=== PATIENT | female | born 1990 | race Caucasian/White ===

== ENCOUNTER → 2024-03-31 14:42 | Outpatient (REF) | payer BC, SELFPAY | LOC: RAD 14:42 | PROVIDERS: ATTENDING PHYSICIAN Nurse Practitioner Family; FAMILY PHYSICIAN Family Medicine | DX: O00.90 Unspecified ectopic pregnancy without intrauterine pregnancy (principal) | CPT/HCPCS: 76801 ==

== ENCOUNTER 2024-07-10 16:54 | Emergency (ER) | payer BC, SELFPAY ==
[2024-07-10 16:57] VITALS: BP 121/88
--- NOTE | 2024-07-10 17:01 | ED.GENMED ---
ED Provider Triage
<Leonor Sanches PA-C - Last Filed: 07/10/24 17:03>
-
Patient seen by provider in Triage?: Seen in Triage
Attestation: A medical screening examination has been initiated by a qualified medical provider. Based on the assessment performed at this time, it has been determined that an emergent medical condition may exist and the patient has been informed
that further medical evaluation and possible additional diagnostic testing may be needed.
HPI: 33yoF currently 11 weeks presenting for vomiting and diarrhea that started yesterday. Vomiting about 20x since then. Worried about dehydration. and children also have similar symptoms and were told it was likely norovirus.
Denies abd/pelvic pain and vaginal bleeding.
GENERAL: Alert , in no apparent distress
EYE: No visual abnormalities.
NECK: Trachea midline
ENT: No visible abnormalities.
LUNGS: No acute respiratory distress
NEUROLOGICAL: Alert and oriented
SKIN: Skin intact. No visible changes.
MUSCULOSKELETAL: Moving extremities normally
PSYCH: Normal and appropriate interaction.
This is a medical evaluation conducted in person to initiate diagnostic evaluation and provide initial therapeutics. Please see further documentation by the treating clinician.
CBC, CMP, magnesium, IV Zofran and fluid bolus ordered.
History of Present Illness
<Leonor Sanches PA-C - Last Filed: 07/10/24 17:03>
General
Chief Complaint: Dehydration Symptoms
Time Seen by Provider: 07/10/24 17:20
<Andria Garcia PA-C - Last Filed: 07/10/24 23:38>
General
Source: patient and spouse
Exam Limitations: none
Nursing documentation reviewed up to this point in time: agreed with
History of Present Illness
History of Present Illness:
Patient is an 33-year-old female approximately [place] weeks presenting to the emergency department with intractable nausea, vomiting, diarrhea since yesterday. Patient reports symptoms started yesterday and have not improved. She has
vomited greater than 10 times. Patient concern for possible dehydration as she is currently . Patient reports very similar symptoms in other members of her household including her and children who were told that they had the
norovirus. Patient denies any fevers or chills. Patient denies any abdominal/pelvic pain or vaginal bleeding/loss of fluids.
Patient has been taking Diclegis for morning sickness which is typically helpful although she has not been able to keep the medication down since she started vomiting. Patient did contact her [facility] who recommended she be seen in the emergency
department.
[facility]
Past History
<Leonor Sanches PA-C - Last Filed: 07/10/24 17:03>
Past History
ED Past Medical History: None
ED Past Surgical History: None
Social History
Tobacco: Non-smoker
Alcohol: None
Review of Systems
<Andria Garcia PA-C - Last Filed: 07/10/24 23:38>
Review of Systems
Allergies reviewed?: Yes
All Other Systems: ROS reviewed and negative except as documented in HPI and ROS
Phy Exam
<Andria Garcia PA-C - Last Filed: 07/10/24 23:38>
Physical Exam
Physical Exam:
Vitals: Patient's vital signs are stable. Afebrile
General: Patient is well appearing, no acute distress. Nontoxic
Skin: Warm and dry, no rashes or lesions
Head: Normocephalic, atraumatic
Eyes: Sclera nonicteric. EOMs intact. No nystagmus.
Throat: Protecting airway
Neck: Normal ROM, no cervical spine tenderness, no meningismus
Cardiac: Regular rate and rhythm, no murmurs.
Pulm: Normal respiratory effort, no wheezes, rales, rhonchi heard on exam.
Abdomen: Abdomen soft. No abdominal tenderness. No rebound tenderness or guarding.
Extremities: No evidence of cyanosis or edema.
Neuro: AAOx3. Grossly intact.
Psychiatric: Normal affect.
Course
<Leonor Sanches PA-C - Last Filed: 07/10/24 17:03>
Orders/Labs/Results
Orders:
Orders
07/10/24 17:00
0.9% Sodium Chloride 1000 ml [Nss] 1,000 ml IV BOLUS
Ondansetron Injectable [Zofran] 4 mg IV NOW STA
07/10/24 17:39
Complete Blood Count/With Diff Urgent
Comprehensive Metabolic Panel Urgent
Magnesium Urgent
07/10/24 19:24
Urinalysis Reflex To Culture Urgent
Date Specimen was Collected: 07/10/24
Time Specimen was Collected: 19:19
Abnormal Lab Results
07/10/24 07/10/24
17:39 19:24
RBC 3.83 L 10^6/uL
(4.20-5.40)
Hct 34.7 L %
(37.0-47.0)
MCH 32.4 H pg
(27.0-31.0)
Absolute Lymphs (auto) 1.1 L 10^3/uL
(1.2-3.4)
Lymphocytes % 20.1 L %
(20.5-51.1)
Monocytes % 10.2 H %
(1.7-9.3)
Sodium 133 L mmol/L
(135-145)
Potassium 3.2 L mmol/L
(3.5-5.1)
Glucose 107 H mg/dl
(70-99)
Urine Urobilinogen 2+ A
(Neg - 1+)
07/10/24 17:39
07/10/24 17:39
Vital Signs
Initial and Last Documented VS:
Initial Vital Signs
Temp Pulse Resp BP Pulse Ox
98.2 F 83 16 98
07/10/24 16:57 07/10/24 16:57 07/10/24 16:57 07/10/24 16:57 07/10/24 16:57
Last Documented Vital Signs
Temp Pulse Resp BP Pulse Ox
98.2 F 83 16 98
07/10/24 16:57 07/10/24 16:57 07/10/24 16:57 07/10/24 16:57 07/10/24 16:57
<Andria Garcia PA-C - Last Filed: 07/10/24 23:38>
Orders/Labs/Results
Orders:
Orders
07/10/24 17:00
0.9% Sodium Chloride 1000 ml [Nss] 1,000 ml IV BOLUS
Ondansetron Injectable [Zofran] 4 mg IV NOW STA
07/10/24 17:39
Complete Blood Count/With Diff Urgent
Comprehensive Metabolic Panel Urgent
Magnesium Urgent
07/10/24 19:24
Urinalysis Reflex To Culture Urgent
Date Specimen was Collected: 07/10/24
Time Specimen was Collected: 19:19
Abnormal Lab Results
07/10/24 07/10/24
17:39 19:24
RBC 3.83 L 10^6/uL
(4.20-5.40)
Hct 34.7 L %
(37.0-47.0)
MCH 32.4 H pg
(27.0-31.0)
Absolute Lymphs (auto) 1.1 L 10^3/uL
(1.2-3.4)
Lymphocytes % 20.1 L %
(20.5-51.1)
Monocytes % 10.2 H %
(1.7-9.3)
Sodium 133 L mmol/L
(135-145)
Potassium 3.2 L mmol/L
(3.5-5.1)
Glucose 107 H mg/dl
(70-99)
Urine Urobilinogen 2+ A
(Neg - 1+)
07/10/24 17:39
07/10/24 17:39
Vital Signs
Initial and Last Documented VS:
Initial Vital Signs
Temp Pulse Resp BP Pulse Ox
98.2 F 83 16 121/88 98
07/10/24 16:57 07/10/24 16:57 07/10/24 16:57 07/10/24 16:57 07/10/24 16:57
Last Documented Vital Signs
Temp Pulse Resp BP Pulse Ox
98.2 F 83 16 121/88 98
07/10/24 16:57 07/10/24 16:57 07/10/24 16:57 07/10/24 16:57 07/10/24 16:57
<Andria Garcia PA-C - Last Filed: 07/10/24 23:38>
MDM/Problems Addressed
Differential Diagnosis Includes:
Not limited to: Viral gastroenteritis, bacterial colitis, hyperemesis gravidarum, etc.
MDM/Problems Addressed:
33-year-old female currently 11 weeks presenting with intractable nausea, vomiting, diarrhea since yesterday. Apparently norovirus spreading through household including and kids. Patient concern for dehydration. Intrauterine
confirmed via ultrasound at [facility] a few weeks ago. Denies fever, chills, abdominal pain, vaginal bleeding/loss of fluids. Patient's has stable vital signs. Physical exam as above. Abdomen soft and nontender. Patient is
nontoxic-appearing. Basic lab work initiated in triage and reviewed. Mild hyperkalemia and hyponatremia likely secondary to GI losses. Ultimately�suspect viral gastroenteritis, likely norovirus given other members at home with this. Low
suspicion for acute intra-abdominal infection given patient is afebrile with benign abdominal exam and no leukocytosis. Liter of fluids and IV Zofran ordered in triage. Will closely monitor patient and reassess.
Update: Patient has received a liter of fluid and is feeling better. No current nausea. Will p.o. challenge with cup of water to ensure tolerating liquids by mouth. Urine shows no evidence of infection or bacteria.
Update: Patient tolerated cup of water without any repeat nausea or vomiting. Abdomen remains benign on exam. Ultimately�feel patient stable for discharge home with primary care/[facility] follow-up. Will recommend adequate p.o. hydration, bland
diet. Patient will resume her Diclegis as prescribed by [facility]. Case discussed with attending physician.
Chronic conditions affecting care:
N/A
Acute Exacerbation and/or Progression of Chronic Illness:
N/A
<Andria Garcia PA-C - Last Filed: 07/10/24 23:38>
*Pulse Oximetry
Patient hypoxic: no
*EKG
Interpreted by ED Provider?: NA
*Forming Process Line Worker Interpretation
Rate: Forming Process Line Worker- N/A
*Critical Care Note
Total Time (30-74mins, 75-104mins- exclusive of procedures): Not Applicable
ED Attending Note
<Leonor Sanches PA-C - Last Filed: 07/10/24 17:03>
-
Portions of this chart may have been created with voice recognition software.� Occasional wrong word or��sound alike� substitutions may have occurred due to the inherent limitations of voice recognition software.
Discharge Plan
Departure
Patient Disposition: Home (Routine Discharge)
Date of Disposition: 07/10/24
Time of Disposition: 19:59
Patient with high blood pressure during this ER visit?: No
Condition: Good
Discharge Problem:
Nausea, vomiting and diarrhea
Instructions: Dehydration, Adult (DC), Nausea and Vomiting, Adult (DC)
Prescriptions:
No Action
prenat.vits,kenny,[id number] Tablet
1 tab PO DAILY Qty: 0
bupropion HCl [Wellbutrin XL] 300 mg Tablet Extended Release 24 Hr
300 mg PO DAILY Qty: 0
ibuprofen 600 mg Tablet
600 mg PO Q6HPRN PRN (Reason: moderate pain/cramps) Qty: 90 0RF
Referrals:
Olga Crow MD [Family Provider] -
Cher Gagnon MD [Active] - Keep scheduled appt
Activity Restrictions/Additional Instructions:
Return to the emergency department for any high fevers, chills, abdominal pain, intractable nausea/vomiting, signs of severe dehydration, worsening current symptoms, or any other concerns
-As discussed/it is important to stay well-hydrated. I would recommend a bland diet over the next few days and slowly advance as tolerated.
-You can continue to take your Diclegis as prescribed by your [facility]
-Follow-up with your primary care / [facility] as needed for further evaluation/management
Monitor your symptoms closely and return to the emergency department with any acute worsening/new symptoms or any other concerns
Interventions
Interventions:
*Risk Screen - Suicide Last Done: 07/10/24 16:57
*General Assessment Last Done: 07/10/24 17:36
*Neglect/Abuse Screening Last Done: 07/10/24 16:57
*ED COVID-19 Vaccine History Last Done: 07/10/24 17:36
*Nursing Disposition Last Done: 07/10/24 20:41
ED- Cardiac Assessment Last Done: 07/10/24 17:41
ED- Neurological Assessment Last Done: 07/10/24 17:41
ED- Pulmonary Assessment Last Done: 07/10/24 17:41
Discharge Date and Time
Discharge Date/Time: 07/10/24 20:42
Print Language: MONGOLIAN
[2024-07-10] MEDS: NSS 1000 IV (17:36)
[2024-07-10] MEDS: ZOFRAN 4 MG IV (17:37)
[2024-07-10 17:48] LABS: % Basophils 0.2 % (0-2); % Eosinophils 0.6 % (0-6); % Immature Granulocytes 0.2 % (0-0.5); % Lymphocytes 20.1 % (20.5-51.1); % Monocytes 10.2 % (1.7-9.3); % Neutrophils 68.7 % (42.2-75.2); Absolute Lymphocytes 1.1 10^3/uL (1.2-3.4); Absolute Monocytes 0.6 10^3/uL (0.1-0.6); Absolute Neutrophils 3.7 10^3/uL (1.4-6.5); Hematocrit 34.7 % (37.0-47.0); Hemoglobin 12.4 g/dL (12.0-16.0); Mean Corp Hgb Conc. 35.7 g/dL (33.0-37.0); Mean Corpuscular Hgb 32.4 pg (27.0-31.0); Mean Corpuscular Volume 90.6 fL (81.0-99.0); Nucleated Red Blood Cells % 0 %; Platelet Count 247 10^3/uL (130-400); Red Blood Cell Count 3.83 10^6/uL (4.20-5.40); Red Cell Dist. Width 12.7 % (11.5-14.5); White Blood Cell Count 5.4 10^3/uL (4.8-10.8)
[2024-07-10 18:06] LABS: ALT (SGPT) 23 U/L (0-35); AST (SGOT) 20 U/L (14-36); Albumin 4.5 g/dl (3.5-5.0); Alkaline Phosphatase 53 U/L (38-126); Blood Urea Nitrogen 9 mg/dl (7-17); Calcium 9.1 mg/dl (8.4-10.2); Carbon Dioxide 25 mmol/L (22-30); Chloride 98 mmol/L (98-107); Glucose 107 mg/dl (70-99); Magnesium 2.2 mg/dl (1.6-2.3); Potassium 3.2 mmol/L (3.5-5.1); Sodium 133 mmol/L (135-145); Total Bilirubin 0.9 mg/dl (0.2-1.3); eGFR > 60.00
[2024-07-10 19:41] LABS: Urine Albumin Negative (Neg - Trace); Urine Bilirubin Negative (Negative); Urine Character Clear (Clear); Urine Color Yellow; Urine Glucose Negative (Negative); Urine Ketone Negative (Negative); Urine Leukocyte Negative (Negative); Urine Nitrite Negative (Negative); Urine Occult Blood Negative (Negative); Urine Urobilinogen 2+ (Neg - 1+)
== END 2024-07-10 20:42 | disposition home or self-care (01) ==
LOC: EMR 16:54
PROVIDERS: Physician Assistant; EMERGENCY PHYSICIAN Student in an Organized Health Care Education/Training Program; FAMILY PHYSICIAN Family Medicine
DX: O21.9 Vomiting of pregnancy, unspecified (principal); O99.891 Other specified diseases and conditions complicating pregnancy; R19.7 Diarrhea, unspecified; Z3A.11 11 weeks gestation of pregnancy
CPT/HCPCS: 96374; 96361; 99284; 80053; 81003; 83735; 85025

== ENCOUNTER 2024-07-24 06:17 | Day surgery (SDC) | payer BC, SELFPAY ==
[2024-07-24 10:54] VITALS: BMI 30.6
[2024-07-24 10:55] VITALS: BP 116/76; BMI 30.6
[2024-07-24] MEDS: NORMOSOL-R/PLASMALYTE-A 1000 IV (11:16)
[2024-07-24] MEDS: TYLENOL 1000 MG PO (11:19)
[2024-07-24 11:28] LABS: Hematocrit 34.2 % (37.0-47.0); Hemoglobin 12.1 g/dL (12.0-16.0)
[2024-07-24] MEDS: ZOFRAN 4 MG IV (11:53)
[2024-07-24] MEDS: VIBRAMYCIN 270 MG IV (13:35)
[2024-07-24 15:30] VITALS: BP 114/71; BP 116/76
[2024-07-24 15:45] VITALS: BP 106/65
[2024-07-24 16:00] VITALS: BP 112/64
[2024-07-24 16:15] VITALS: BP 104/69
== END 2024-07-24 16:35 | disposition home or self-care (01) ==
LOC: SDS 06:17
PROVIDERS: ATTENDING PHYSICIAN Obstetrics & Gynecology
DX: O02.1 Missed abortion (principal); N85.4 Malposition of uterus; Z3A.01 Less than 8 weeks gestation of pregnancy
CPT/HCPCS: 59841; 88305; 85014; 85018; 86850; 86900; 86901

== ENCOUNTER → 2024-08-04 13:08 | Outpatient (REF) | payer BC, SELFPAY | LOC: RAD 13:08 | PROVIDERS: ATTENDING PHYSICIAN Obstetrics & Gynecology; FAMILY PHYSICIAN Family Medicine | DX: O01.1 Incomplete and partial hydatidiform mole (principal) | CPT/HCPCS: 76830; 76856 ==